=== PATIENT | female | born 1980 ===

== ENCOUNTER 2023-08-18 14:51 | Outpatient (AMB) | payer OTHER, SELFPAY ==
--- NOTE | 2023-08-18 15:40 | MHC.OFFWIV ---
Intake Vital Signs 08/18/23 16:04 Height 5 ft 4 in Weight 226 lb 4 oz BMI 38.8 BP 120/68 Blood Pressure Location Rt brachial Position Sitting Pulse 94 Pulse Source Pulse Oximeter Temp 98.6 F Temp Source Oral Pulse Oximetry (%) 98 Oxygen Delivery Method Room Air Intake Visit Reasons: EST/cough([phone]) Intake Note: Patient is here today for bad cough, patients states loose voice when talks. Patient Tobacco Use Status: Never used Tobacco Allergies No Known Allergies Allergy (Verified 08/18/23 16:33) Medication List - Last Reconciled 08/18/23 by Karan Anderson MD azithromycin (Zithromax) take 500 mg today (day 1), then 250 mg for 4 days (days 2-5) PO prednisone 60 mg (3 x 20 mg) PO DAILY HPI EST/cough([phone]) HPI Details Patient presents for a sick visit. Reporting symptoms of sinus congestion, sore throat and difficulty swallowing. Low-grade fever. No family member is sick. No recent travel. Patient reports symptoms of malaise and fatigue. PFS Social History Patient Tobacco Use Status: Never used Tobacco Physical Exam Vital Signs: Last Vital Signs Temp 98.6 F 08/18/23 16:04 Pulse 94 08/18/23 16:04 BP 120/68 08/18/23 16:04 Pulse Ox 98 08/18/23 16:04 Oxygen Delivery Method Room Air 08/18/23 16:04 BMI result Body Mass Index 38.8 Const General: cooperative and healthy appearing Nutritional Appearance: well nourished Orientation/consciousness: patient oriented x3 Limitations: no limitations HEENT Head: Yes normal to inspection Eyes General: appearance normal, both eyes and all related structures Neck Neck: Yes normal visual inspection Chest Chest palpation & inspection: normal palpation of entire chest wall Resp Effort & Inspection: normal respiratory effort Neuro General: patient oriented x3 Assessment & Plan Assessment & Plan (1) Upper respiratory tract infection: Code(s): J06.9 - Acute upper respiratory infection, unspecified Plan: Antibiotics ordered. Increase fluid intake. Tylenol for aches and pains. If symptoms worsen, follow-up here for a recheck. Medications: New prednisone 60 mg (3 x 20 mg) PO DAILY 9 tabs 0RF azithromycin (Zithromax) take 500 mg today (day 1), then 250 mg for 4 days (days 2-5) PO 6 tabs 0RF Coding Level of Care Code Est Pt Level 3 (94277) Diagnoses Upper respiratory tract infection J06.9
[2023-08-18 16:04] VITALS: BP 120/68; PULSE 94; TEMP 37; O2SAT 98; BMI 38.8
== END 2023-08-18 16:40 | disposition home or self-care (01) ==
LOC: HO.HMGWI 14:51
DX: J06.9 Acute upper respiratory infection, unspecified (principal)
CPT/HCPCS: 99213